=== PATIENT | female | born 1995 | race Two or more races ===

== ENCOUNTER → 2021-05-08 15:14 | Outpatient (CLI) | payer OTHER, SELFPAY ==
--- NOTE | ~2021-05-08 | US_ITS ---
EXAMINATION: US OB /maternal detail EXAM DATE: 05/08/2021 15:49 INDICATION: Encounter for other specified screening. 2nd trimester. TECHNIQUE: Pelvic obstetrical transabdominal sonogram was performed by a technologist. There are mu ltiple grayscale and Doppler images available for interpretation. There are no earlier studies of th is gestation for comparison. FINDINGS: There is a single fetus identified in vertex presentation with a heart rate of 167 beats pe r minute. The placenta is located in the posterior position. There is no sonographic evidence of ret roplacental hemorrhage identified. There is subjectively expected amount of amniotic fluid. BIOMETRIC DATA: Biparietal diameter (BPD): 5.4 cm ----------------> 22 weeks 3 days. Head circumference (HC): 19.8 cm ----------------> 22 weeks 0 days. Abdominal circumference (AC): 16.6 cm ----------> 21 weeks 5 days. Femur length (FL): 3.5 cm --------------------------> 21 weeks 0 days. These measurements are concordant. HC/AC ratio is 1.19 (The 5th -- 95th percentile range is 1.06, 1.23. Estimated weight is 425 g +/- 64 g. This is the 25th percentile when the currently reported cl inical gestation age 21 weeks 6 days, clinical estimated date of delivery (ARNAV-OPE) 09/12/2021 is used . estimated gestational age based on measurements from this exam is also 21 weeks 6 days, with an estimated date of delivery (ARNAV-AUA) 09/12/2021. ANATOMIC SURVEY: The following anatomy is identified and is sonographically normal in appearance: Cerebral ventricles Cerebellum Cisterna magna Nuchal fold CTL-spine Four-chamber heart Cardiac outflow tracts. Diaphragm Stomach Kidneys Bladder Three-vessel cord Cord insertion Nose/lips Extremities IMPRESSION: 1. Single fetus in vertex presentation with heart rate 167 beats per minute. 2. Estimated weight of 425 grams, 25th percentile using the currently reported clinical gestat ion age of 20 weeks 6 days, ARNAV(OPE) 09/12/2021. 3. Normal anatomic survey. Reviewed, dictated and finalized at location A. IMPRESSION: 1. Single fetus in vertex presentation with heart rate 167 beats per minute. 2. Estimated weight of 425 grams, 25th percentile using the currently re ported clinical gestation age of 20 weeks 6 days, ARNAV(OPE) 09/12/2021. 3. Normal anatomic survey.
== END ==
PROVIDERS: Visit Provider Obstetrics & Gynecology
DX: Z34.92 Encounter for supervision of normal pregnancy, unspecified, second trimester (principal); Z3A.21 21 weeks gestation of pregnancy
CPT/HCPCS: 76805